=== PATIENT | male | born 1995 | race Asian ===

== ENCOUNTER 2024-03-12 01:28 | Emergency (ER) | payer OTHER ==
[2024-03-12] MEDS ORDERED: predniSONE 20 MG TAB ONE (01:52)
--- NOTE | 2024-03-12 01:52 | ER ---
Nurse's Notes [facility] Name: Sabino Nunes Age: 28 yrs Sex: Male : 1995 Arrival Date: 03/12/2024 Time: 01:28 Bed 6 Private MD: Diagnosis: Davis's palsy Presentation: 03/12 01:38 Chief complaint: Patient states: right side of face numbness and not able to close lg3 right eye. flu positive last week. Coronavirus screen: Client denies travel out of the [place] in the last 14 days. At this time, the client does not indicate any symptoms associated with coronavirus-19. Ebola Screen: No symptoms or risks identified at this time. Initial Sepsis Screen: Does the patient meet any 2 criteria? No. Patient's initial sepsis screen is negative. Does the patient have a suspected source of infection? No. Patient's initial sepsis screen is negative. Risk Assessment: Do you want to hurt yourself or someone else? Patient reports no desire to harm self or others. Onset of symptoms was March 12, 2024. 01:38 Method Of Arrival: Ambulatory lg3 01:38 Acuity: RAAD 3 lg3 Triage Assessment: 01:41 General: Appears in no apparent distress. comfortable, Behavior is calm, cooperative. lg3 Pain: Denies pain. EENT: Eyes are tearing on right eye. Neuro: No deficits noted. Garcia Agitation-Sedation Scale (RASS): 0 - Alert and Calm Level of Consciousness is awake, alert, obeys commands, Oriented to person, place, time, situation, Moves all extremities. Full function Speech is normal. Cardiovascular: No deficits noted. Denies chest pain, shortness of breath, Capillary refill < 3 seconds Clubbing of nail beds is absent JVD is absent Patient's skin is warm and dry. Respiratory: No deficits noted. Airway is patent Respiratory effort is even, unlabored, Respiratory pattern is regular, symmetrical. GI: No deficits noted. No signs and/or symptoms were reported involving the gastrointestinal system. : No deficits noted. No signs and/or symptoms were reported regarding the genitourinary system. Derm: No deficits noted. Skin is intact, is healthy with good turgor, Skin is dry, Skin is normal, Skin temperature is warm. Musculoskeletal: No deficits noted. Circulation, motion, and sensation intact. Range of motion: intact in all extremities. Historical: - Allergies: 01:41 No Known Allergies; lg3 - Home Meds: 01:41 None [Active]; lg3 - PMHx: 01:41 None; lg3 - PSHx: 01:41 None; lg3 - Immunization history:: Adult Immunizations up to date. - Infectious Disease History:: Denies. - Social history:: Smoking status: Reported history of juuling and/or vaping. Patient/guardian denies using alcohol, street drugs. - Family history:: not pertinent. Screenin:45 [facility] ED Fall Risk Assessment (Adult) History of falling in the last 3 months, lc8 including since admission No falls in past 3 months (0 pts) Confusion or Disorientation No (0 pts) Intoxicated or Sedated No (0 pts) Impaired Gait No (0 pts) Mobility Assist Device Used No (0 pt) Altered Elimination No (0 pt) Score/Fall Risk Level 0 - 2 = Low Risk. 01:45 Abuse screen: Denies threats or abuse. Denies injuries from another. Nutritional lc8 screening: No deficits noted. Tuberculosis screening: No symptoms or risk factors identified. Assessment: 01:45 General: Appears in no apparent distress. comfortable, Behavior is calm, cooperative. lc8 01:45 Pain: Denies pain. Neuro: Reports. Neuro: Level of Consciousness is awake, alert, obeys lc8 commands, Oriented to person, place, time, situation, Reports numbness in face unable to close R eye. Cardiovascular: Capillary refill < 3 seconds Patient's skin is warm and dry. Respiratory: Airway is patent Respiratory effort is even, unlabored, Respiratory pattern is regular, symmetrical. GI: No deficits noted. : No deficits noted. EENT: No deficits noted. Derm: No deficits noted. Musculoskeletal: No deficits noted. Vital Signs: 01:38 BP 121 / 81; Pulse 81; Resp 17 S; Temp 98.1(TE); Pulse Ox 100% on R/A; Weight 65.77 kg lg3 (R); Height 5 ft. 7 in. (R); Pain 0/10; 01:38 Body Mass Index 22.71 (65.77 kg, 170.18 cm) lg3 01:38 Pain Scale: Adult lg3 NIH Stroke Scale Scores: 01:43 NIHSS Score: 0 lg3 ED Course: 01:34 Patient arrived in ED. gm2 01:35 Steve Zambrano MD is Attending Physician. rt 01:41 Triage completed. lg3 01:41 Arm band placed on left wrist. lg3 01:45 Patient has correct armband on for positive identification. Bed in low position. Call lc8 light in reach. Provided Education on: medication adminstered. 01:45 No provider procedures requiring assistance completed. Patient did not have IV access lc8 during this emergency room visit. 01:49 Juan Oliveira, RN is Primary Nurse. bm8 Administered Medications: 01:54 Drug: predniSONE PO 40 mg PO once Route: PO; lc8 02:00 Follow up: Response: No adverse reaction lc8 Medication: 01:55 VIS not applicable for this client. lc8 Outcome: 01:51 Discharge ordered by MD. rt 01:58 Discharged to home ambulatory, with family, lc8 01:58 Condition: stable lc8 01:58 Discharge instructions given to patient, Instructed on discharge instructions, medication usage, Demonstrated understanding of instructions, follow-up care, medications, Prescriptions given X 1, 02:01 Patient left the ED. lc8 NIH Stroke Scale - NIH Stroke Score Date: 03/12/2024 Time: :43 Total Score = 0 10. Dysarthria (speech clarity - read or repeat words) - 0(Normal) 11. Extinction and Inattention (visual/tactile/auditory/spatial/personal) - 0(No abnormality) 1a. Level of Consciousness (LOC) - 0(Alert) 1b. Level of Consciousness (LOC) (Month \T\ Age) - 0(Both) 1c. LOC Commands (Open \T\ Closes Eyes/Salesperson Driver) - 0(Both) 2. Best Gaze (Lateral Gaze Paresis) - 0(Normal) 3. Visual Field Loss - 0(No visual loss) 4. Facial Palsy - 0(Normal) 5a. Left Arm: Motor (10-second hold) - 0(No drift) 5b. Right Arm: Motor (10-second hold) - 0(No drift) 6a. Left Leg: Motor (5-second hold - always test supine) - 0(No drift) 6b. Right Leg: Motor (5-second hold - always test supine) - 0(No drift) 7. Limb Ataxia (finger/nose \T\ heel/vicente - test with eyes open) - 0(Absent) 8. Sensory Loss (pinprick arms/legs/face) - 0(Normal) 9. Best Language: Aphasia (description/naming/reading) - 0(No aphasia) Initials: lg3 Signatures: Chelsie Whitney RN RN lg3 Steve Zambrano MD MD rt Solange Reyes gm2 Juan Oliveira RN RN bm8 Vikram Santillan RN RN lc8 Corrections: (The following items were deleted from the chart) 02:00 01:45 Neuro: Level of Consciousness is awake, alert, obeys commands, Oriented lc8 to person, place, time, situation, Reports numbness in face lc8
--- NOTE | 2024-03-12 01:52 | EDPHYS ---
Physician Documentation [facility] Name: Sabino Nunes Age: 28 yrs Sex: Male : 1995 Arrival Date: 03/12/2024 Time: 01:28 Bed 6 Private MD: ED Physician Steve Zambrano HPI: 03/12 02:07 This 28 yrs old Male presents to ER via Ambulatory with complaints of Numbness Of rt Face, Numbness Of Mouth. 02:07 Patient presents to the ED with a right-sided facial numbness, able to close eye rt completely as well as pain to the right eye starting yesterday morning at about 10 AM. States it progressively worsened. Patient does report a recent viral illness. Denies other acute complaints at this time, symptoms are mild in severity, no other aggravating alleviating factors.. Historical: - Allergies: : No Known Allergies; lg3 - Home Meds: :41 None [Active]; lg3 - PMHx: :41 None; lg3 - PSHx: :41 None; lg3 - Immunization history:: Adult Immunizations up to date. - Infectious Disease History:: Denies. - Social history:: Smoking status: Reported history of juuling and/or vaping. Patient/guardian denies using alcohol, street drugs. - Family history:: not pertinent. ROS: 02:07 Constitutional: Negative for fever, chills, and weight loss, Cardiovascular: Negative rt for chest pain, palpitations, and edema, Respiratory: Negative for shortness of breath, cough, wheezing, and pleuritic chest pain, Abdomen/GI: Negative for abdominal pain, nausea, vomiting, diarrhea, and constipation, MS/Extremity: Negative for injury and deformity, Skin: Negative for injury, rash, and discoloration, 02:07 Neuro: Positive for numbness, weakness, Exam: 02:07 Constitutional: This is a well developed, well nourished patient who is awake, alert, rt and in no acute distress. Head/Face: Normocephalic, atraumatic. Chest/axilla: Normal chest wall appearance and motion. Nontender with no deformity. No lesions are appreciated. Cardiovascular: Regular rate and rhythm with a normal S1 and S2. No gallops, murmurs, or rubs. Normal PMI, no JVD. No pulse deficits. Respiratory: Lungs have equal breath sounds bilaterally, clear to auscultation and percussion. No rales, rhonchi or wheezes noted. No increased work of breathing, no retractions or nasal flaring. Abdomen/GI: Soft, non-tender, with normal bowel sounds. No distension or tympany. No guarding or rebound. No evidence of tenderness throughout. Skin: Warm, dry with normal turgor. Normal color with no rashes, no lesions, and no evidence of cellulitis. MS/ Extremity: Pulses equal, no cyanosis. Neurovascular intact. Full, normal range of motion. 02:07 Neuro: Right-sided facial weakness, incomplete, involving eyebrows. Sensation is intact, no other cranial nerve deficits. Strength and sensation intact in upper and lower extremities., Vital Signs: 01:38 BP 121 / 81; Pulse 81; Resp 17 S; Temp 98.1(TE); Pulse Ox 100% on R/A; Weight 65.77 kg lg3 (R); Height 5 ft. 7 in. (R); Pain 0/10; 01:38 Body Mass Index 22.71 (65.77 kg, 170.18 cm) lg3 01:38 Pain Scale: Adult lg3 NIH Stroke Scale Scores: 01:43 NIHSS Score: 0 lg3 MDM: 01:45 Patient medically screened. rt 02:07 Differential diagnosis: Davis's palsy, CVA, TIA. Data reviewed: vital signs, nurses rt notes. Test considered but Not performed: Other Details Patient's presentation, physical exam findings are most consistent with a Davis's palsy as compared to central nervous system process. Do not believe that CT scan, MRI, labs are indicated at this time.. Counseling: I had a detailed discussion with the patient and/or guardian regarding the historical points, exam findings, and any diagnostic results supporting the discharge/admit diagnosis, the need for outpatient follow up, to return to the emergency department if symptoms worsen or persist or if there are any questions or concerns that arise at home, Discussed with patient importance of eye care, to keep eye well-hydrated. Patient to be placed on steroids. Return precautions discussed.. Administered Medications: 01:54 Drug: predniSONE PO 40 mg PO once Route: PO; lc8 02:00 Follow up: Response: No adverse reaction lc8 Disposition Summary: 03/12/24 01:51 Discharge Ordered Notes: Location: Home rt Problem: new rt Symptoms: are unchanged rt Condition: Stable rt Diagnosis - Davis's palsy rt Followup: rt - With: Private Physician - When: 2 - 3 days - Reason: Discharge Instructions: - Discharge Summary Sheet rt - Davis's Palsy, Adult rt Forms: - Medication Reconciliation Form rt - Antibiotic Education rt - Prescription Opioid Use rt - Patient Portal Instructions rt - Leadership Thank You Letter rt Prescriptions: - Prednisone 20 mg Oral tablet - take 2 tablets ORAL route once daily for 4 days; 8 tablet; Refills: 0, Product rt Selection Permitted NIH Stroke Scale - NIH Stroke Score Date: 03/12/2024 Time: 01:43 Total Score = 0 10. Dysarthria (speech clarity - read or repeat words) - 0(Normal) 11. Extinction and Inattention (visual/tactile/auditory/spatial/personal) - 0(No abnormality) 1a. Level of Consciousness (LOC) - 0(Alert) 1b. Level of Consciousness (LOC) (Month \T\ Age) - 0(Both) 1c. LOC Commands (Open \T\ Closes Eyes/Masking Machine Operator) - 0(Both) 2. Best Gaze (Lateral Gaze Paresis) - 0(Normal) 3. Visual Field Loss - 0(No visual loss) 4. Facial Palsy - 0(Normal) 5a. Left Arm: Motor (10-second hold) - 0(No drift) 5b. Right Arm: Motor (10-second hold) - 0(No drift) 6a. Left Leg: Motor (5-second hold - always test supine) - 0(No drift) 6b. Right Leg: Motor (5-second hold - always test supine) - 0(No drift) 7. Limb Ataxia (finger/nose \T\ heel/vicente - test with eyes open) - 0(Absent) 8. Sensory Loss (pinprick arms/legs/face) - 0(Normal) 9. Best Language: Aphasia (description/naming/reading) - 0(No aphasia) Initials: lg3 Signatures: Chelsie Whitney RN RN lg3 Steve Zambrano MD MD rt Vikram Santillan RN RN lc8
[2024-03-12 02:24] VITALS: BP 121/81; TEMP 98.1; O2SAT 100
== END 2024-03-12 02:01 | disposition home or self-care (01) ==
LOC: ER 01:28
DX: G51.0 Bell's palsy (principal)
CPT/HCPCS: 99284; J7512